=== PATIENT | female | born 1960 | race Caucasian/White ===

== ENCOUNTER → 2017-01-31 | Outpatient (CLI) | payer OTHER, MEDICAID | LOC: GMAJ 15:16 | PROVIDERS: ATTEND Family Medicine | DX: M06.9 Rheumatoid arthritis, unspecified (principal) ==

== ENCOUNTER → 2017-02-04 | Outpatient (CLI) | payer OTHER, MEDICAID ==
--- NOTE | 2017-02-05 00:55 | US ---
Procedure: US ABDOMEN Exam Date: 02/04/2017 Ordering Provider: DANE MARTIN Clinical Indication: HEPATOMEGALY Comparison: None Technique: Real-time ultrasonography was obtained over the abdominal viscera and sales representative metals images were recorded. Findings: The liver is borderline enlarged measuring up to 18.2 cm. There is diffuse increased echogenicity of the liver consistent with fatty infiltration. There are no intrahepatic masses. There is no intrahepatic ductal dilatation. The gallbladder is normal in size and appearance. There are no gallstones. There is no gallbladder wall thickening or pericholecystic fluid. The extrahepatic common duct is normal in size measuring 3.2 mm. The spleen is normal in size and contour. There is normal internal echogenicity of the spleen. There are no splenic masses. The visualized portions of the pancreas are normal. The aorta has a normal appearance. The right kidney is normal in size and contour. The right kidney measures 11.6 cm in bipolar length. Cortical thickness and echogenicity are normal. There are no masses, calculi, or hydronephrosis. The left kidney is normal in size and contour. The left kidney measures 11.1 cm in bipolar length. Cortical thickness and echogenicity are normal. There are no masses, calculi, or hydronephrosis. There is no ascites. Impression: 1. Hepatomegaly. 2. Hepatic steatosis. 3. Examination is otherwise unremarkable. Electronically signed by: Keyshawn Marshall MD 02/05/2017 12:55 AM CDT
== END | disposition home or self-care (01) ==
LOC: US 09:51
PROVIDERS: ATTEND Family Medicine
DX: R16.0 Hepatomegaly, not elsewhere classified (principal)

== ENCOUNTER → 2017-04-09 | Outpatient (CLI) | payer OTHER, MEDICAID | END | disposition home or self-care (01) | LOC: LAB.O 12:12 | PROVIDERS: ATTEND Internal Medicine | DX: L40.50 Arthropathic psoriasis, unspecified (principal) ==

== ENCOUNTER → 2018-06-13 | Outpatient (CLI) | payer OTHER, MEDICAID ==
--- NOTE | 2018-06-13 14:49 | CT ---
EXAM DESCRIPTION: Abdomen/Pelvis w/wo Contrast: Computed Tomography. CLINICAL HISTORY: ABD PAIN. Right lower quadrant x1 week. History of irritable bowel syndrome, diverticulitis, colitis, and enlarged liver. COMPARISON: None. TECHNIQUE: Spiral-axial scans at 5 x 5 mm intervals through the abdomen and pelvis before and after standard dose nonionic IV contrast. No oral contrast. Coronal and sagittal 2.0 mm reconstructions. 5 mm Delayed helical-axial scans, liver through the pubic symphysis. No adverse reactions. Total Exam DLP 544.15 mGy - cm. This exam was performed according to our departmental CT dose-optimization program which includes automated exposure control, adjustment of the mA and/or kV according to patient size and/or use of iterative reconstruction technique; to reduce radiation dose to as low as reasonably achievable (ALARA). FINDINGS: Lung bases and pleura: Negative. Liver, Stomach, Spleen, Adrenal Glands: Long axis of the right lobe of the liver is 19.6 cm. No focal lesions. No ascites. Stomach not distended. Other solid organs are negative. Pancreas, Gallbladder, Ducts: Gallbladder is visualized and is just right of midline of the lower abdomen/upper pelvis due to hepatomegaly duct and pancreas are negative.. Kidneys and Ureters: 2 mm radiodense stone upper collecting system left kidney with no hydronephrosis. Bilateral ureters unremarkable. Mesentery and Colon: Increased density of the pericolonic fat in the lateral left abdomen with 2 large radiodense diverticula in the adjacent proximal descending colon, axial sequence 4, images 26-28. Bowel wall enhancement and thickening on axial images 26-31. Fecal material in the proximal colon and transverse colon. Also sigmoid colon which is redundant with diverticula but no complications.. Aorta: Moderate atherosclerotic calcification distally with normal caliber. Small Bowel: No significant distention. Diffuse gas and fluid. Terminal Ileum/Cecum: Fluid in the TI and gas and fecal material in the cecum. Normal caliber of the appendix. No fatty stranding fascial thickening or fluid collection. Pelvic Organs: Uterus retroverted or retroflexed. Markedly distended vessels around the uterus with enhancement. No significant fluid in the cul-de-sac. Spine and Bony Pelvis: Minimal spondylosis L2-3 anterior. Minimal narrowing bilateral hip joints. Abdominal Wall/Back Soft Tissues: Body piercing in the umbilicus. IMPRESSION: 1. Short segment diverticulitis in the proximal descending colon abutting the right abdominal wall. No free air or free fluid or bowel obstruction. Diverticulosis and constipation distal colon with constipation proximal colon as well. Normal CT appearance of the appendix. 2. Hepatomegaly with no ascites. Gallbladder ducts and pancreas are unremarkable. 3. Nonobstructing 2 mm radiodense stone upper collecting system left kidney 4. . Engorged vascular around the uterus of uncertain significance. Uterus is retroverted or retroflexed. No free fluid in the cul-de-sac. Bilateral ovaries are visualized with large follicle on the right. Electronically signed by: Adeel Gamez MD 06/13/2018 2:48 PM CDT
== END ==
LOC: CT 07:19
PROVIDERS: ATTEND Nurse Practitioner Family
DX: K57.32 Diverticulitis of large intestine without perforation or abscess without bleeding (principal); K59.00 Constipation, unspecified; R16.0 Hepatomegaly, not elsewhere classified; N20.0 Calculus of kidney

== ENCOUNTER → 2018-06-20 | Outpatient (CLI) | payer OTHER, MEDICARE ==
--- NOTE | 2018-06-20 17:29 | US ---
EXAM DESCRIPTION: Abdomen,Complete CLINICAL HISTORY: R10.9 COMPARISON: Previous study February 04, 2017 TECHNIQUE: Complete abdominal ultrasound FINDINGS: Visualized portions of the pancreas are unremarkable. No peripancreatic fluid. Bowel gas obscures some areas. Normal caliber of the aorta. Normal appearance of the inferior vena cava. Liver parenchyma is homogeneous in texture with normal echogenicity. No liver mass or intrahepatic bile duct dilatation. No liver surface irregularity. Right lobe liver length of 17.2 cm is within normal limits. Normal appearance of hepatic veins and portal vein. Gallbladder appears normal with no intraluminal stones. No gallbladder wall thickening. Common bile duct is normal in caliber measuring 5.2 mm. The right kidney measures 11.3 cm in length. Normal renal cortical echogenicity. The renal cortical thickness appears normal. No right renal mass, shadowing stone or cyst. There is no hydronephrosis. Spleen is normal in size. No focal splenic lesion other than small calcified granuloma. The left kidney measures 11.5 cm in length. Normal renal cortical echogenicity. The renal cortical thickness appears normal. No left renal mass, shadowing stone or cyst. There is no hydronephrosis. IMPRESSION: No diagnostic abnormality is identified on sonographic evaluation of the upper abdomen. Electronically signed by: Narciso Corea MD 06/20/2018 5:28 PM CDT
--- NOTE | 2018-06-20 17:34 | US ---
EXAM DESCRIPTION: Pelvis Transvaginal CLINICAL HISTORY: 57 years, Female, ABD PN COMPARISON: Previous abdomen sonogram February 04, 2017 FINDINGS: Transvaginal pelvic ultrasound. The uterus measures 5.7 x 4.5 x 2.6 cm. Small uterine fibroid in the lower uterine segment measures 1 cm and is isoechoic. Endometrium measures 8.0 mm in maximal thickness and is heterogeneous with multiple cystic areas. Correlate with further evaluation with hysterosonography or endometrial biopsy. If the patient is postmenopausal, this is abnormally thickened and could represent endometrial hyperplasia or endometrial proliferation. No mass or polyp. Right ovary measures 1.1 x 1 x 0.8 cm. No definite follicles are seen. Arterial flow in the presumed right ovary is identified on Doppler interrogation. Left ovary measures 2 x 2 0.2 x 1 cm. Prominent vessels are seen. Small follicle is identified 6 mm. Doppler interrogation shows positive arterial flow in the left ovary. There is no adnexal mass or free fluid. IMPRESSION: Small uterine fibroid. Thickened heterogeneous endometrium. See above comments. No ovarian enlargement. Electronically signed by: Narciso Corea MD 06/20/2018 5:32 PM CDT
== END ==
LOC: US 09:40
PROVIDERS: ATTEND Nurse Practitioner Family
DX: R10.9 Unspecified abdominal pain (principal); D25.9 Leiomyoma of uterus, unspecified